=== PATIENT | female | born 1995 | race Hispanic/Latino ===

== ENCOUNTER 2019-03-21 11:33 | Day surgery (SDC) | payer OTHER, SELFPAY ==
[2019-03-21] VITALS (8 sets, daily range): BP systolic 86–105; BP diastolic 42–73; PULSE 62–81; RESP 11–20; TEMP 35.9–36.7; O2SAT 98–100; BMI 23.5
[2019-03-21] MEDS: SODIUM CHLORIDE 0.9% 1,000 ML 21 ML IV ×2 (12:12→13:51)
--- NOTE | 2019-03-21 13:02 | PM.HP.1 ---
History of Present Illness History of Present Illness Date Patient Seen: 03/21/19 Time Patient Seen: 13:02 Chief complaint: [id number] Narrative: Rectal bleeding and constipation Patient History Family & Social History Social History: household members spouse Tobacco & Substance use: Smoking Status Never smoker alcohol intake never Substance Use Type does not use Meds Home Medications and Allergies Home Medications Medication Instructions Recorded Confirmed Type etonogestrel [Nexplanon] 68 mg SUBDERMAL SEEINSTR 03/21/19 03/21/19 History Allergies Allergy/AdvReac Type Severity Reaction Status Date / Time No Known Drug Allergies Allergy Verified 03/21/19 11:48 Exam Vital Signs (past 8 hours): - 03/21/19 11:49 Temperature 96.7 F L Pulse Rate 69 Respiratory Rate 16 Blood Pressure 105/73 Pulse Oximetry 100 Oxygen Delivery Method Room Air Narrative Exam Narrative: Oropharynx free of lesions Chest clear to auscultation percussion Cardiac exam reveals no S3 or murmur Assessment & Plan Assessment & Plan narrative: Rectal bleeding and constipation, rule out internal hemorrhoids versus neoplasia. Risks benefits and alternatives have been explained.
--- NOTE | 2019-03-21 13:03 | PM.OP.ENDO ---
Operative Date/Time/Diagnoses Date of procedure: 03/21/19 Time of procedure: 13:03 Pre-op diagnosis: See indication and findings Procedure & Clinicians Study performed: Colonoscopy Same procedure as scheduled: Yes Indications: Rectal bleeding and constipation Surgeon: Rush Whitley Procedure Notes Procedure in detail: After informed consent was obtained the patient was placed in left lateral decubitus position. The video colonoscope was introduced the rectum and slowly advanced. Easily passed the cecum. Preparation was good. On slow withdrawal mucosa was carefully examined. The scope was removed. The patient tolerated procedure well. Blood loss none Complications none Sedation Total sedation time 16 minutes Versed 7 mg fentanyl 150 mg IV titration Findings 1. Totally normal colonoscopy to cecum 2. Trivial internal hemorrhoids Stick with high-fiber diet and increase water consumption and follow-up with Dr. Kelsey is needed
[2019-03-21] MEDS: fentaNYL 250 MCG/5 ML INJ IV (13:18)
[2019-03-21] MEDS: MIDAZOLAM 5 MG/5 ML VIAL IV (13:18)
--- NOTE | 2019-03-21 15:32 | SUR.PHASEII ---
Pt dressed when ready and left in stable condition.
== END 2019-03-21 14:45 | disposition home or self-care (01) ==
PROVIDERS: PCP Family Medicine; Visit Provider Internal Medicine Gastroenterology
PROC: 0DJD8ZZ Inspection of Lower Intestinal Tract, Via Natural or Artificial Opening Endoscopic (ICD-10-PCS; CPT 45378; principal; 2019-03-21 13:00)
DX: K62.5 Hemorrhage of anus and rectum (principal); K59.00 Constipation, unspecified; K64.8 Other hemorrhoids
CPT/HCPCS: 45378; J2250; J3010

== ENCOUNTER 2021-03-12 20:27 | Emergency (ER) | payer OTHER, SELFPAY ==
--- NOTE | 2021-03-12 20:33 | ED_ITS ---
HPI - Head Injury General Chief complaint: Wound/Laceration Stated complaint: head injruy s/p fall Time Seen by Provider: 03/12/21 20:33 History of Present Illness HPI Narrative: 26-year-old female nonsmoker presents with a chief complaint of a head injury after a ground level fall just prior to arrival. She was mopping in her kitchen when she slipped on the floor and fell backwards striking her head. She denies any loss of consciousness, nausea, vomiting or other neurologic symptoms. She has a mild headache but denies blurred vision, trouble speech or balance. She denies any use of alcohol or street drugs. She has no neck or back pain is otherwise well and free of complaint. Her tetanus is current Related Data Home Medications Medication Instructions Recorded Confirmed etonogestrel 68 mg subdermal 68 mg SUBDERMAL SEEINSTR 03/21/19 03/21/19 implant (Nexplanon) Allergies Allergy/AdvReac Type Severity Reaction Status Date / Time No Known Drug Allergies Allergy Verified 03/21/19 11:48 Review of Systems Review of Systems Narrative: GENERAL: Denies chills, fatigue, malaise, fever, sweats. HEENT: Denies sinus pain, ear pain, sore throat, difficulty swallowing, dizziness. RESPIRATORY: Denies dyspnea, cough, wheezing, hemoptysis, sputum. CARDIOVASCULAR: Denies chest pain, palpitations, orthopnea, edema, GASTROINTESTINAL: Denies nausea, vomiting, abdominal pain, diarrhea, constipation, melena. : Denies dysuria, frequency, incontinence, hematuria, urinary retention. MUSCULOSKELETAL: denies weakness, joint pain, or bony pain SKIN: See HPI NEUROLOGIC: Denies weakness, headache, numbness, change in speech, confusion, seizures, incoordination. PSYCHIATRIC: No concerning psychosocial issues. 12 point review of systems is negative except for those stated above Patient History Social History household members: spouse Smoking Status: Never smoker alcohol intake: never Smoking Status: Never smoker Substance Use Type: does not use Exam Narrative Exam Narrative: GEN: AOx3 and in mild distress, GCS 15 HEAD: 2.5 cm occipital scalp laceration, no FB, no evidence of depressed skull fracture EYES: Pupils are equal, round, and reactive to light and accommodation. No hyphema Extraoccular muscles are intact bilaterally. There is no subconjunctival hemorrhage or exudate. NECK: No midline bony tenderness, no step-offs or crepitance, no pain with axial loading CHEST: Lungs are clear to auscultation bilaterally and free of wheezes, rales, or rhonchi. Heart rate is regular rhythm, there are no murmurs, clicks, rubs, or gallops. There is no chest wall tenderness. ABD: Abdomen is soft and nontender. There is no guarding or rebound. Bowel sounds are normal in all 4 quadrants. There is no mass or organomegaly. EXT: Full painless ROM of all extremities with no loss of sensation or strength. SKIN: Warm, pink, and dry. No erythema or rash Initial Vital Signs Initial Vital Signs: Vital Signs Temperature 97.5 F L 03/12/21 20:38 Pulse Rate 105 H 03/12/21 20:38 Respiratory Rate 18 03/12/21 20:38 Blood Pressure 125/81 03/12/21 20:38 Pulse Oximetry 99 03/12/21 20:38 Procedures Laceration Repair Laceration 1: Site: scalp Side (If applicable): right Size (cm): 2.5 Description: linear Depth: simple, single layer Local Anesthetic: lidocaine 1% and with bicarb Amount of anesthesia used (mL): 3 Pre-repair: wound explored Skin layer closed with: rowan Number of sutures: [address] Head Rule Age <16 years old: No Patient on blood thinners: No Seizure after injury: No Exclusion: Patient NOT Excluded, Proceed to next steps GCS < 15 at 2 hr post trauma: No Suspected open or depressed skull fracture: No Any sign of basilar skull fracture (hemotympanum, raccoon eyes, Yoon's sign, CSF mikal-/rhinorrhea): No Two or more episodes of vomiting: No Age greater or equal to 65 years: No Retrograde amnesia to the event greater or equal to 30 min: No Dangerous Mechanism (pedestrian vs. mv, occupant ejected from mv, fall from >3 ft or > 5 stairs): No Recommendation: CT unnecessary Nexus Score for C-Spine Focal Neurologic deficit present: No Midline spinal tenderness present: No Altered level of conciousness present: No Intoxication present: No Distracting Injury Present: No Nexus Criteria for C-spine: 0 Course Vital Signs Vital signs: Vital Signs - 8 hr 01/13/22 20:38 Temperature 97.5 F L Pulse Rate 105 H Respiratory Rate 18 Blood Pressure 125/81 Pulse Oximetry 99 Discharge Plan Departure Patient Disposition: Home Clinical Impression: Laceration Instructions: DI for Laceration Repair Activity Restrictions/Additional Instructions: Please keep the wound clean and dry to the best of your ability. Please monitor for signs of infection such as redness to the skin or increasing pain. Have the rowan removed by your doctor in about 7 days. If you are unable to get into your doctor, we would be happy to remove the rowan in that same timeframe. Prescriptions: No Action Nexplanon 68 mg Implant 68 mg SUBDERMAL SEEINSTR 0RF Referrals: Nora Aranda DO [Primary Care Provider] -
[2021-03-12 20:38] VITALS: BP 125/81; PULSE 105; RESP 18; TEMP 36.4; O2SAT 99; BMI 25.9
[2021-03-12] MEDS: LIDO 1%/SOD BICARB 8.4% (10ML) 10 ML SYRINGE INJ (21:04)
== END 2021-03-12 21:06 | disposition home or self-care (01) ==
PROVIDERS: Emergency Provider Emergency Medicine; PCP Family Medicine
DX: S01.01XA Laceration without foreign body of scalp, initial encounter (principal); W01.0XXA Fall on same level from slipping, tripping and stumbling without subsequent striking against object, initial encounter
CPT/HCPCS: 12001; 99283

== ENCOUNTER 2021-03-19 19:25 | Emergency (ER) | payer OTHER, SELFPAY ==
[2021-03-19 19:36] VITALS: BP 121/65; PULSE 87; RESP 16; TEMP 36.4; O2SAT 97; BMI 25.4
--- NOTE | 2021-03-19 19:48 | ED.RECABL ---
HPI - Recheck/Abnormal Lab/Rx <Roberto Cedeno PA-C - Last Filed: 03/19/21 19:59> General Chief Complaint: Recheck/Abnormal Lab/Rx Stated Complaint: Needs Juan Removed Time Seen by Provider: 03/19/21 19:48 Source: patient Mode of arrival: Ambulatory History of Present Illness HPI narrative: Patient is a 26-year-old female presenting to the emergency department today for a staple removal. Patient states that she sustained a laceration to the scalp on 03/12/2021, seen that she slipped and fell while mopping her floor. She came to the emergency department and received 4 juan to close the wound. She presents today requesting to have the juan removed. Patient denies fever, chills, chest pain, cough, shortness of breath, nausea, vomiting, diarrhea, abdominal pain, dysuria, hematuria, swelling surrounding the laceration, discharge from the laceration, increased pain from a laceration, or any other concerning symptoms. No further concerns were voiced at this time. Related Data Home Medications Medication Instructions Recorded Confirmed etonogestrel 68 mg subdermal 68 mg SUBDERMAL SEEINSTR 03/21/19 03/21/19 implant (Nexplanon) Allergies Allergy/AdvReac Type Severity Reaction Status Date / Time No Known Drug Allergies Allergy Verified 03/19/21 19:39 Review of Systems <Roberto Cedeno PA-C - Last Filed: 03/19/21 19:59> Constitutional Constitutional: Denies chills, Denies fatigue, Denies fever(s), Denies frequent falls, Denies lethargy and Denies weakness ENT Ears, Nose, Mouth, and Throat: Denies change in voice, Denies dizziness, Denies neck pain, Denies sore throat and Denies throat swelling Cardiovascular Cardiovascular: Denies chest pain, Denies irregular heart rhythm, Denies lightheadedness, Denies palpitations, Denies dyspnea, Denies dyspnea on exertion and Denies orthopnea Respiratory Respiratory: Denies cough, Denies dyspnea, Denies dyspnea on exertion and Denies wheezing Gastrointestinal Gastrointestinal: Denies abdominal pain, Denies change in bowel habits, Denies diarrhea, Denies nausea and Denies vomiting Genitourinary Genitourinary: Denies hematuria, Denies flank pain, Denies urinary incontinence and Denies urinary urgency Musculoskeletal Musculoskeletal: Denies back pain, Denies muscle weakness, Denies neck pain, Denies numbness and Denies tingling Integumentary/Breasts Skin/Breast: Denies pruritus, Denies erythema, Denies rash and Denies wounds Neurologic Neurologic: Denies dizziness, Denies frequent falls, Denies numbness, Denies tingling and Denies weakness Endocrine Endocrine: Denies fatigue and Denies palpitations Allergic/Immunologic Allergic/Immunologic: Denies throat swelling and Denies wheezing Patient History <Roberto Cedeno PA-C - Last Filed: 03/19/21 19:59> Social History household members: spouse Smoking Status: Never smoker alcohol intake: never Smoking Status: Never smoker Alcohol type: other Substance Use Type: does not use Exam <Roberto Cedeno PA-C - Last Filed: 03/19/21 19:59> Narrative Exam Narrative: GENERAL: [] year old patient appears stated age. Well-developed patient, in no acute distress. HEAD: Atraumatic. Normocephalic. EYES: Pupils equal round and reactive. Extraocular motions intact. No scleral icterus. No injection or drainage. ENT: Nose without bleeding, purulent drainage. Throat without erythema, tonsillar hypertrophy or exudate. Airway patent. NECK: Trachea midline. Non tender CARDIOVASCULAR: Regular rate and rhythm without murmurs, gallops, or rubs. RESPIRATORY: Clear to auscultation. Breath sounds equal bilaterally. No wheezes, rales, or rhonchi. GASTROINTESTINAL: Abdomen soft, non-tender, nondistended. EXTREMITIES: No edema or joint tenderness. BACK: Nontender without deformity or crepitance. No flank tenderness. NEURO: AOx3. SKIN: No rash or erythema of visible areas. Well-healed linear laceration to the scalp with [address] Initial Vital Signs Initial Vital Signs: Vital Signs Temperature 97.6 F 03/19/21 19:36 Pulse Rate 87 03/19/21 19:36 Respiratory Rate 16 03/19/21 19:36 Blood Pressure 121/65 03/19/21 19:36 Pulse Oximetry 97 03/19/21 19:36 <Mendy Harris DO - Last Filed: 03/20/21 00:53> Initial Vital Signs Initial Vital Signs: Vital Signs Temperature 97.6 F 03/19/21 19:36 Pulse Rate 87 03/19/21 19:36 Respiratory Rate 16 03/19/21 19:36 Blood Pressure 121/65 03/19/21 19:36 Pulse Oximetry 97 03/19/21 19:36 Procedures <ZACKERY Terry Last Filed: 03/19/21 19:59> [facility] – [place] Procedure Name of Procedure: Staple removal Side (if applicable): right Location: Scalp Technique/Description of procedure performed: 4 juan removed. Patient tolerated procedure: Well Complications: none Course <ZACKERY Terry Last Filed: 03/19/21 19:59> Course Course Narrative: Four juan removed. Well-healing laceration. Vital Signs Vital signs: Vital Signs - 8 hr 03/19/21 19:36 Temperature 97.6 F Pulse Rate 87 Respiratory Rate 16 Blood Pressure 121/65 Pulse Oximetry 97 <Mendy Harris DO - Last Filed: 03/20/21 00:53> Vital Signs Vital signs: Vital Signs - 8 hr 03/19/21 19:36 Temperature 97.6 F Pulse Rate 87 Respiratory Rate 16 Blood Pressure 121/65 Pulse Oximetry 97 MDM - Recheck/Abnormal Lab/Rx <ZACKERY Terry Last Filed: 03/19/21 19:59> [facility] Narrative Medical decision making narrative: He consider superficial skin laceration. Overall physical examination and history reassuring. Four juan were removed from the linear laceration the right-sided scalp. Patient tolerated procedure well and states she is comfortable with being discharged home at this time. Strict return precautions were discussed with the patient prior to discharge. At this time patient is stable and ready for discharge. Discharge Plan Departure Patient Disposition: Home Clinical Impression: Encounter for removal of juan Instructions: DI for Suture Removal Activity Restrictions/Additional Instructions: *You have been diagnosed with encounter for staple removal *What to do: *Please continue to take your regular medications as directed. [ ] New medication prescriptions sent to your pharmacy: [ ] [ ] New medication written as a paper prescription [X] No new medications given *Please follow up with your primary care provider in 2-3 days, call for an appointment. Let them know you were seen in the Emergency Department and that we ask that you be seen in follow up. We will electronically transmit a record of today's note if your PCP is in our system *If you do not have a primary care provider please contact the [facility] Resource line at [phone]. They will ask some questions about your medical history and help get you set up with a doctor in the community. *Return to Emergency Department if you should have any new, worsening or concerning symptoms, such as fever greater than 101 F, shaking chills, worsening pain, persistent vomiting or other bothersome symptoms. Prescriptions: No Action Nexplanon 68 mg Implant 68 mg SUBDERMAL SEEINSTR 0RF Referrals: Nora Aranda DO [Primary Care Provider] - <Mendy Harris DO - Last Filed: 03/20/21 00:53> [facility]ign ED Attending Cosignature Attestation: I was immediately available in the department for consultation. Documentation has been reviewed. I agree with assessment and plan.
== END 2021-03-19 19:59 | disposition home or self-care (01) ==
PROVIDERS: Emergency Provider Physician Assistant; PCP Family Medicine
DX: Z48.02 Encounter for removal of sutures (principal)
CPT/HCPCS: 99281

== ENCOUNTER 2021-06-07 14:35 | Emergency (ER) | payer OTHER, SELFPAY ==
[2021-06-07 14:49] VITALS: BP 131/80; PULSE 93; RESP 18; TEMP 36.7; O2SAT 99; BMI 26.2
--- NOTE | 2021-06-07 15:10 | ED.FEMALEGU ---
HPI - Female Genitourinary <JOSE FRANCISCO Chatterjee - Last Filed: 06/07/21 15:44> General Chief complaint: Urogenital-Female Stated complaint: thinks uti/bladder infection, for 3 weeks Time Seen by Provider: 06/07/21 14:53 Source: patient Mode of arrival: Ambulatory History of Present Illness HPI Narrative: 26-year-old female presents to emergency department complaining of dysuria, urinary frequency and urgency for 1 week. Patient states that she was seen by her primary care provider for right flank pain 3 weeks ago, her provider ordered a renal ultrasound of the right kidney, and patient states she missed her appointment. Patient states that her symptoms got better and then 1 week ago she started having urinary urgency, frequency and now dysuria. She denies any nausea vomiting, fever, back pain, flank pain, or any abdominal pain. Patient states that she has been tolerating food and water without any problems. She denies any changes to her vaginal discharge. States she has Nexplanon, does not have regular periods. Related Data Home Medications Medication Instructions Recorded Confirmed etonogestrel 68 mg subdermal 68 mg SUBDERMAL SEEINSTR 03/21/19 03/21/19 implant (Nexplanon) Previous Rx's Medication Instructions Recorded phenazopyridine 100 mg tablet 100 mg PO TID PRN #7 tab 06/07/21 (Pyridium) sulfamethoxazole 800 1 tab PO BID 5 Days #10 tab 06/07/21 mg-trimethoprim 160 mg tablet (Bactrim DS) Allergies Allergy/AdvReac Type Severity Reaction Status Date / Time No Known Drug Allergies Allergy Verified 06/07/21 14:52 Review of Systems <JOSE FRANCISCO Chatterjee - Last Filed: 06/07/21 15:44> Review of Systems Narrative: General: denies fever, chills, malaise, sweats, fatigue Head/Neck: denies headache, neck pain, dizziness Eyes: denies visual changes, eye pain Cardio: denies chest pain, palpitations, edema Respiratory: denies dyspnea, cough, orthopnea GI: denies abdominal pain, nausea, vomiting, or diarrhea : Endorses dysuria, frequency, urgency, denies any hematuria, urinary retention, or incontinence MSK: denies joint pain, muscle weakness Skin: denies rash, itching, skin lesions or other Neuro: denies numbness, tingling Patient History <JOSE FRANCISCO Chatterjee - Last Filed: 06/07/21 15:44> Alcohol type: other Last Alcoholic Drink: none Substance Use Type: does not use Exam <JOSE FRANCISCO Chatterjee - Last Filed: 06/07/21 15:44> Narrative Exam Narrative: Independently reviewed vitals signs and nursing notes. General: cooperative, comfortable, in no acute distress, well developed and well groomed, afebrile Head: atraumatic, symmetrical facial expressions Neck: supple, atraumatic, without lymphadenopathy. Eyes: pupils equal round and reactive, EOMI, conjunctiva normal Nose: nares patent, no rhinorrhea Mouth/Throat: uvula midline, moist mucus membranes Cardiovascular: regular rate and rhythm, no peripheral edema, warm extremities Respiratory: normal effort, able to speak in complete sentences, no audible wheezing, stridor, or rales. No retractions or tachypnea. GI: abdomen soft, nontender to palpation, nondistended, no masses, no exquisite tenderness with exam, without guarding or rebound. No suprapubic tendeness to palpation, no CVA tenderness. MSK: moves all extremities, ambulatory w/steady gait, neurovascularly intact, no weakness Skin: brisk capillary refill, no rash, no erythema Neuro: normal speech and cognition, A&O x3, normal tone Psych: mental status is grossly normal, congruent mood, normal affect, pleasant and cooperative Initial Vital Signs Initial Vital Signs: Vital Signs Temperature 98.0 F 06/07/21 14:49 Pulse Rate 93 H 06/07/21 14:49 Respiratory Rate 18 06/07/21 14:49 Blood Pressure 131/80 06/07/21 14:49 Pulse Oximetry 99 06/07/21 14:49 <Hawk Marie DO - Last Filed: 06/08/21 09:25> Initial Vital Signs Initial Vital Signs: Vital Signs Temperature 98.0 F 06/07/21 14:49 Pulse Rate 93 H 06/07/21 14:49 Respiratory Rate 18 06/07/21 14:49 Blood Pressure 131/80 06/07/21 14:49 Pulse Oximetry 99 06/07/21 14:49 Course <JOSE FRANCISCO Chatterjee - Last Filed: 06/07/21 15:44> Orders Ordered: Discontinued Medications Cephalexin HCl (Cephalexin 250 Mg Capsule) 500 mg PO NOW ONE Stop: 06/07/21 15:31 Phenazopyridine HCl (Phenazopyridine 100 Mg Tablet) 100 mg PO NOW ONE Stop: 06/07/21 15:32 Last Admin: 06/07/21 16:01 Dose: 100 mg Documented by: SARAH Trimethoprim/Sulfamethoxazole (Trimeth/Sulfa 160/800 (Ds) Tablet) 1 tab PO NOW ONE Stop: 06/07/21 15:34 Last Admin: 06/07/21 16:01 Dose: 1 tab Documented by: SARAH Vital Signs Vital signs: Vital Signs - 8 hr 06/07/21 14:49 Temperature 98.0 F Pulse Rate 93 H Respiratory Rate 18 Blood Pressure 131/80 Pulse Oximetry 99 <Hawk Marie DO - Last Filed: 06/08/21 09:25> Orders Ordered: Discontinued Medications Cephalexin HCl (Cephalexin 250 Mg Capsule) 500 mg PO NOW ONE Stop: 06/07/21 15:31 Phenazopyridine HCl (Phenazopyridine 100 Mg Tablet) 100 mg PO NOW ONE Stop: 06/07/21 15:32 Last Admin: 06/07/21 16:01 Dose: 100 mg Documented by: SARAH Trimethoprim/Sulfamethoxazole (Trimeth/Sulfa 160/800 (Ds) Tablet) 1 tab PO NOW ONE Stop: 06/07/21 15:34 Last Admin: 06/07/21 16:01 Dose: 1 tab Documented by: SARAH Vital Signs Vital signs: Vital Signs - 8 hr 06/07/21 14:49 Temperature 98.0 F Pulse Rate 93 H Respiratory Rate 18 Blood Pressure 131/80 Pulse Oximetry 99 MDM - Female Genitourinary <JOSE FRANCISCO Chatterjee - Last Filed: 06/07/21 15:44> Lab Data Labs: Lab Results 06/07/21 06/07/21 Range/Units 15:13 15:13 Urine Color Yellow Urine Appearance Slightly cloudy Urine pH 7.5 (4.5-8.0) Ur Specific [place] 1.015 (1.000-1.035) Urine Protein Negative (Negative) Urine Glucose (UA) Negative (Negative) g/dL Urine Ketones Negative (NEGATIVE) Urine Occult Blood Trace-intact (Negative) Urine Nitrate Negative (Negative) Urine Bilirubin Negative (NEGATIVE) Urine Urobilinogen 0.2 (0.2) E.U./dL Ur Leukocyte Esterase 1+ H (NEGATIVE) Urine RBC 0-1/hpf (0-5/HPF) Urine WBC 10-30/hpf H (0-5/HPF) Ur Squamous Epith Cells 1-5 /hpf (0-5/HPF) Urine Bacteria Few (2-10) H (None) Ur Culture Indicated? Specimen cultured Urine Test Negative (Negative) Point of Care Testing Test Results Negative MDM Narrative Medical decision making narrative: This is a 26-year-old female who presents to the emergency department for dysuria, urinary frequency, and urgency for 1 week without fever abdominal pain back pain flank pain nausea or vomiting. Patient is nontoxic appearing, no CVA tenderness on exam, UA shows leukocytes, bacteria noted on microscopy, special is cultured and will follow-up on results. Urine was cloudy without nitrates. Patient was given Bactrim, Pyridium, encouraged to follow-up with her PCP if any worsening. She is given strict return precautions. No indications for imaging at this point. Differential includes: Pyelonephritis, renal calculi, bacterial vaginosis and pelvic inflammatory disease. Patient is appropriate and amenable to discharge home. Vital signs are stable on repeat examination is unremarkable. Patient has been informed of results. Patient has been given strict return to ER precautions for any new or worsening symptoms. Patient understands to follow up closely with outpatient providers as instructed. Patient understands plan and agrees to discharge home. All questions and concerns answered at this time. <Hawk Marie DO - Last Filed: 06/08/21 09:25> Lab Data Labs: Lab Results 06/07/21 06/07/21 Range/Units 15:13 15:13 Urine Color Yellow Urine Appearance Slightly cloudy Urine pH 7.5 (4.5-8.0) Ur Specific [place] 1.015 (1.000-1.035) Urine Protein Negative (Negative) Urine Glucose (UA) Negative (Negative) g/dL Urine Ketones Negative (NEGATIVE) Urine Occult Blood Trace-intact (Negative) Urine Nitrate Negative (Negative) Urine Bilirubin Negative (NEGATIVE) Urine Urobilinogen 0.2 (0.2) E.U./dL Ur Leukocyte Esterase 1+ H (NEGATIVE) Urine RBC 0-1/hpf (0-5/HPF) Urine WBC 10-30/hpf H (0-5/HPF) Ur Squamous Epith Cells 1-5 /hpf (0-5/HPF) Urine Bacteria Few (2-10) H (None) Ur Culture Indicated? Specimen cultured Urine Test Negative (Negative) Point of Care Testing Test Results Negative Discharge Plan Departure Patient Disposition: Home Clinical Impression: Urinary tract infection Qualifiers: Urinary tract infection type: acute cystitis Hematuria presence: with hematuria Qualified Code(s): N30.01 - Acute cystitis with hematuria Instructions: DI for Urinary Tract Infection (UTI) Activity Restrictions/Additional Instructions: *You have been diagnosed with a urinary tract infection. Please take your antibiotics for the next 5 days as prescribed. Follow-up with your primary care provider if you do not feel better. Please return to the emergency department if you are unable to keep anything down, develop a high fever, back pain, or any other concerning symptoms. You may take the Pyridium for urinary urgency and frequency but will staying your urine orange. You can use a panty liner to help protect her clothing. Please stay hydrated, take ibuprofen as needed for pain or fever. I hope you feel better soon. *What to do: *Please continue to take your regular medications as directed. [x ] New medication prescriptions sent to your pharmacy: [[facility] ] [ ] New medication written as a paper prescription [ ] No new medications given *Please follow up with your primary care provider in 2-3 days, call for an appointment. Let them know you were seen in the Emergency Department and that we asked that you be seen for follow-up. We will electronically transmit a record of today's note if your PCP is in our system *If you do not have a primary care provider please contact [phone] to establish care with one of the [facility] primary care providers. *Return to Emergency Department if you should have any new, worsening or concerning symptoms, such as [fever greater than 101F, chills, worsening pain, persistent vomiting or other bothersome symptoms] Prescriptions: New sulfamethoxazole-trimethoprim [Bactrim DS] 800-160 mg tablet 1 tab PO BID 5 Days Qty: 10 0RF phenazopyridine [Pyridium] 100 mg tablet 100 mg PO TID PRN (Reason: pain) Qty: 7 0RF No Action Nexplanon 68 mg Implant 68 mg SUBDERMAL SEEINSTR 0RF Referrals: Nora Aranda DO [Primary Care Provider] - <Hawk Marie DO - Last Filed: 06/08/21 09:25> Cosign ED Attending Skyler Attestation: I was immediately available in the department for consultation. This documentation has been reviewed and I agree with assessment and plan. Supervised by Hawk Marie DO
[2021-06-07 15:24] LABS: Pregnancy Test Urine Negative (Negative)
[2021-06-07 15:25] LABS: Bilirubin Urine UA NEGATIVE (NEGATIVE); Color Urine UA YELLOW; Glucose Urine UA NEGATIVE (Negative); Ketones Urine UA NEGATIVE (NEGATIVE); Leukocyte Esterase Urine UA 1+ (NEGATIVE); Nitrite Urine UA NEGATIVE (Negative); Occult Blood Urine UA TRACE-INTACT (Negative); Protein Urine UA NEGATIVE (Negative); Specific Gravity Urine UA 1.015 (1.000-1.035); Urobilinogen Urine UA 0.2 E.U./dL (0.2)
[2021-06-07 15:26] LABS: Appearance Urine UA Slightly Cloudy; pH Urine UA 7.5 (4.5-8.0)
[2021-06-07 15:27] LABS: RBC Urine 0-1/HPF (0-5/HPF); WBC Urine 10-30/HPF (0-5/HPF)
[2021-06-07 15:28] LABS: Bacteria Urine Few (2-10); Culture Indicated Urine Specimen Cultured; Squamous Epithelial Cell Urine 1-5 /HPF (0-5/HPF)
[2021-06-07] MEDS: TRIMETH/SULFA 160/800 (DS) TABLET 1 TAB PO (16:01)
[2021-06-07] MEDS: PHENAZOPYRIDINE 100 MG TABLET PO (16:01)
[2021-06-07 16:09] VITALS: BP 125/74; PULSE 82; RESP 14; O2SAT 98
== END 2021-06-07 16:10 | disposition home or self-care (01) ==
PROVIDERS: Emergency Provider Nurse Practitioner Critical Care Medicine; PCP Family Medicine
DX: N30.01 Acute cystitis with hematuria (principal)
CPT/HCPCS: 81001; 81025; 87086; 99283